=== PATIENT | male | born 1975 | race Caucasian/White ===

== ENCOUNTER 2017-02-12 02:57 | Emergency (ER) | payer SELFPAY ==
[~2017-02-12] VITALS: Ht 170.2 cm; Wt 77.0 kg
[~2017-02-12 02:57] MED LIST: ELOC0.1O; MOME30SO TOP
[2017-02-12 02:59] VITALS: BP 142/90; PULSE 86; RESP 15; TEMP 98.7; O2SAT 98
[2017-02-12] MEDS ORDERED: IBUP800T23 PO (03:21)
[2017-02-12] MEDS ORDERED: BACT800T5 PO (03:21)
[2017-02-12] MEDS ORDERED: CIPR-9 PO (03:21)
--- NOTE | 2017-02-12 03:24 | PD ---
HPI Chief Complaint: ENT Complaint Time Seen by Provider: 03:19 Travel History International Travel<30 days: No Contact w/Intl Traveler<30days: No Traveled to known affect area: No History of Present Illness HPI 41-year-old male presents for evaluation of left ear pain which started yesterday. He reports throbbing sensation localized to the left ear tragus on the posterior aspect. He feels that it is swollen like a pimple. He has been applying warm compresses but symptoms have persisted which prompted evaluation. Denies drainage, fevers, chills. He has no other complaints at this time. PFSH Past Medical History Diminished Hearing: Yes (due to pain) Integumentary: Yes (PSORIASIS) Immunizations Current: No Tetanus Vaccination: Unknown Influenza Vaccination: No Past Surgical History Abdominal Surgery: Yes (HERNIA) Social History Alcohol Use: Yes (2 TIMES PER WEEK) Tobacco Use: No Substance Use: No Allergies-Medications (Allergen,Severity, Reaction): Coded Allergies: No Known Allergies (Verified , 02/12/17) Reported Meds & Prescriptions Reported Meds & Active Scripts Active Ibuprofen 800 Mg Tab 800 Mg PO Q6HR PRN Cipro (Ciprofloxacin HCl) 500 Mg Tab 500 Mg PO BID 10 Days Bactrim DS (Sulfamethoxazole-Trimethoprim) 800-160 Mg Tab 1 Tab PO BID Review of Systems General / Constitutional: No: Fever, Chills HENT: Positive: Earache, No: Ear Discharge Physical Exam Narrative GENERAL: Well-developed well-nourished male in no acute distress SKIN: Warm and dry. HEAD: Atraumatic. Normocephalic. EYES: Pupils equal and round. No scleral icterus. No injection or drainage. ENT: No nasal bleeding or discharge. Mucous membranes pink and moist. Examination of the left ear reveals some induration on the posterior aspect of the left tragus without fluctuance or drainage. The ear canal itself is non- erythematous or edematous. The tympanic murmur and appears normal. NECK: Trachea midline. No JVD. CARDIOVASCULAR: Regular rate and rhythm. No murmur appreciated. RESPIRATORY: No accessory muscle use. Clear to auscultation. Breath sounds equal bilaterally. Data Data Last Documented VS Vital Signs Date Time Temp Pulse Resp B/P (MAP) Pulse Ox O2 Delivery O2 Flow Rate FiO2 02/12/17 02:59 98.7 86 15 142/90 (107) 98 Room Air Orders Orders Sulfamet-Trimeth Ds 800-160 Mg (Bactrim (02/12/17 03:30) Ciprofloxacin (Cipro) (02/12/17 03:30) Ibuprofen (Motrin) (02/12/17 03:30) [facility] Medical Decision Making Medical Screen Exam Complete: Yes Emergency Medical Condition: Yes Medical Record Reviewed: Yes Differential Diagnosis Cellulitis, postural, abscess, malignant otitis externa, otitis media Narrative Course 41-year-old male presents with 2 days of left ear pain. Examination reveals essentially cellulitis and pustule formation to the posterior left tragus with no evidence of malignant otitis externa. The plan at this time would be to treat the patient with oral antibiotics, specifically Bactrim for MRSA coverage as well as Cipro for gram-negative coverage. Discussed signs and symptoms don' t warrant return to the emergency room. He is stable for discharge. Diagnosis Primary Impression: Cellulitis of tragus of left ear Additional Instructions: Take the antibiotics as prescribed. Ibuprofen for discomfort. Take with meals. Continue warm compresses to the affected area several times a day 10 minutes at a time. Return for new or worsening symptoms. Med/Other Pt SpecificInfo: Prescription(s) given Scripts Ibuprofen (Ibuprofen) 800 Mg Tab 800 MG PO Q6HR Y for PAIN, #40 TAB 0 Refills Prov: Sheila Gerardo DO 02/12/17 Ciprofloxacin (Cipro) 500 Mg Tab 500 MG PO BID for Infection for 10 Days, TAB 0 Refills Prov: Sheila Gerardo DO 02/12/17 Sulfamethoxazole-Trimethoprim (Bactrim DS) 800-160 Mg Tab 1 TAB PO BID for Infection, #20 TAB 0 Refills Prov: Sheila Gerardo DO 02/12/17 Disposition: DISCHARGE HOME Condition: Stable Bryce Moncada Feb 12, 2017 03:24
[2017-02-12] MEDS ORDERED: IBUPROFEN 800 MG TAB PO ONE (03:30)
[2017-02-12] MEDS ORDERED: SULFAMETHOXAZOLE-TRIMETHOPRIM DS 800-160 MG TAB PO ONE (03:30)
[2017-02-12] MEDS ORDERED: CIPROFLOXACIN 500 MG TAB PO ONE (03:30)
== END 2017-02-12 03:50 | disposition home or self-care (01) ==
LOC: NEPD 02:57
DX: H60.12 Cellulitis of left external ear (principal)
CPT/HCPCS: 99284

== ENCOUNTER 2017-03-19 10:37 | Emergency (ER) | payer OTHER ==
[~2017-03-19] VITALS: Ht 170.2 cm; Wt 85.0 kg
[~2017-03-19 10:37] MED LIST changes: +BACT800T5 PO; +CIPR-9 PO; -ELOC0.1O; +IBUP800T23 PO; -MOME30SO TOP
[2017-03-19 10:38] VITALS: BP 139/93; PULSE 88; RESP 18; TEMP 98.2; O2SAT 98
[2017-03-19] MEDS ORDERED: IBUPROFEN 800 MG TAB PO ONE (11:00)
[2017-03-19] MEDS ORDERED: METHOCARBAMOL 500 MG TAB PO ONE (11:00)
[2017-03-19] MEDS ORDERED: IBUP800T23 PO (11:01)
[2017-03-19] MEDS ORDERED: ROBA500T PO (11:01)
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
== END 2017-03-19 11:14 | disposition home or self-care (01) ==
LOC: NEPK 10:37
DX: S16.1XXA Strain of muscle, fascia and tendon at neck level, initial encounter (principal); V43.52XA Car driver injured in collision with other type car in traffic accident, initial encounter; Z79.899 Other long term (current) drug therapy
CPT/HCPCS: 99283